=== PATIENT | male | born 1945 | race Caucasian/White ===

== ENCOUNTER 2019-09-08 07:02 | Day surgery (SDC) | payer OTHER ==
[2019-09-06 09:49] VITALS: BMI 37.9
[~2019-09-08 07:02] MED LIST: LACTATED RINGERS 1,000 ML IV SCH; LIDOCAINE 1% 20 ML VIAL (10MG/ML) FOR IV START INTRADERMA PRN
[2019-09-08 07:35] VITALS: TEMP 98.1
[2019-09-08 07:46] LABS: Glucose,Whole Blood 78 mg/dL (75-99)
[2019-09-08] MEDS ORDERED: PROPOFOL 10 MG/ML 20 ML VIAL IV ONE (08:28)
[2019-09-08] MEDS ORDERED: LACTATED RINGERS 1,000 ML IV ONE (09:03)
--- NOTE | 2019-09-08 09:05 | P.PCN ---
Date of Procedure: 09/08/19 Description of Procedure: BRIEF HISTORY: Patient is a 74-year-old male who presents for outpatient colonoscopy for screening for malignant neoplasm of the colon. Reports a remote history of colonoscopy in the past 6 years ago per his recollection. Does believe he had polypectomy in the past. Denies any change in bowel habits does report some dark stool. PROCEDURE PERFORMED: Colonoscopy with polypectomy. PREOPERATIVE DIAGNOSIS: Screening for malignant neoplasm of the colon, last colonoscopy over 6 years ago. She believes he had polyps removed at that time. ESTIMATED BLOOD LOSS: Minimal. IV sedation per Anesthesia. PROCEDURE: After informed consent was obtained, the patient, was brought into the endoscopy unit. IV sedation was administered by Anesthesia under continuous monitoring. Digital rectal examination was normal. Initially the Olympus CF-190 flexible video colonoscope was then inserted in the rectum, gradually advanced into the cecum without any difficulty. Careful examination was performed as the scope was gradually being withdrawn. Ileocecal valve and the appendiceal orifice were visualized and appeared normal. Prep was excellent. Mucosa of the cecum, ascending colon, transverse colon, descending colon, sigmoid colon, and rectum appeared normal. Diminutive 2 mm sigmoid colon polyp removed with cold forcep polypectomy. Mild left colonic diverticulosis noted. Retroflexion was performed in the rectum and no lesions were seen. The patient tolerated the procedure well. IMPRESSION: Diminutive sigmoid polyp removed with cold forcep polypectomy. Mild left colonic diverticulosis. Otherwise normal-appearing colon from rectum to cecum . RECOMMENDATIONS: Findings of this examination were discussed with the patient and his . Okay to resume diet. Okay to resume medications. Would recommend repeat colonoscopy in 5 years if medically stable for history of colon polyps.
[2019-09-08 09:06] VITALS: RESP 16
[2019-09-08 09:24] VITALS: BP 118/74; PULSE 71
[2019-09-08 09:37] LABS: Glucose,Whole Blood 83 mg/dL (75-99)
== END 2019-09-08 09:40 | disposition home or self-care (01) ==
LOC: ORWHC2ENDO 07:02
PROVIDERS: ATTEND Internal Medicine
DX: Z12.11 Encounter for screening for malignant neoplasm of colon (principal); D12.5 Benign neoplasm of sigmoid colon; K57.30 Diverticulosis of large intestine without perforation or abscess without bleeding; Z86.010 Personal history of colon polyps; F17.220 Nicotine dependence, chewing tobacco, uncomplicated; Z79.899 Other long term (current) drug therapy; Z79.4 Long term (current) use of insulin; Z79.891 Long term (current) use of opiate analgesic; Z79.82 Long term (current) use of aspirin; Z98.890 Other specified postprocedural states; I10 Essential (primary) hypertension; E78.5 Hyperlipidemia, unspecified; K08.89 Other specified disorders of teeth and supporting structures; Z85.51 Personal history of malignant neoplasm of bladder; K21.9 Gastro-esophageal reflux disease without esophagitis; Z90.6 Acquired absence of other parts of urinary tract
CPT/HCPCS: 88305; 45380; J2704